=== PATIENT | female | born 1975 | race Caucasian/White ===

== ENCOUNTER 2018-07-17 17:29 | Emergency (ER) | payer SELFPAY ==
[2018-07-17] MEDS ORDERED: ONDANSETRON 4 MG TAB.RAPDIS PO ONE (17:49)
--- NOTE | 2018-07-17 17:51 | ER Document Report ---
ED Medical Screen (RME) - General Chief Complaint: Nausea Stated Complaint: NAUSEA Time Seen by Provider: 07/17/18 17:49 Mode of Arrival: Ambulatory Information source: Patient TRAVEL OUTSIDE OF THE [place] IN LAST 30 DAYS: No - HPI Patient complains to provider of: nausea Onset: Other - pt with c/o nausea for the past 3-4 wks. Denies V/D - Related Data Allergies/Adverse Reactions: No Known Allergies Allergy (Verified 07/17/18 17:31) Physical Exam - Vital signs Vitals: Temp Pulse Resp BP Pulse Ox 98.9 F 76 20 110/60 97 07/17/18 17:44 07/17/18 17:44 07/17/18 17:44 07/17/18 17:44 07/17/18 17:44 Course - Vital Signs Vital signs: Temp Pulse Resp BP Pulse Ox 98.9 F 76 20 110/60 97 07/17/18 17:44 07/17/18 17:44 07/17/18 17:44 07/17/18 17:44 07/17/18 17:44
[2018-07-17 18:12] LABS: ABSOLUTE EOSINOPHILS # (AUTO) 0.1 10^3/uL (0.0-0.6); ABSOLUTE MONOCYTES (AUTO) 0.5 10^3/uL (0.1-1.4); ABSOLUTE NEUT (AUTO) 7.2 10^3/uL (1.7-8.2); BASOPHILS % (AUTO) 0.4 % (0-2); HEMOGLOBIN 13.1 g/dL (12.0-15.5); LYMPHOCYTES % (AUTO) 20.6 % (13-45); MEAN CORPUSCULAR HEMOGLOBIN 31.1 pg (27.0-33.4); MEAN CORPUSCULAR HGB CONC 34.5 g/dL (32.0-36.0); MEAN CORPUSCULAR VOLUME 90 fl (80-97); MONOCYTES % (AUTO) 5.2 % (3-13); PLATELET COUNT 258 10^3/uL (150-450); RED BLOOD COUNT 4.22 10^6/uL (3.72-5.28); SEGMENTED NEUTROPHILS % (AUTO) 72.8 % (42-78); TOTAL CELLS COUNTED % (AUTO) 100 %; WHITE BLOOD COUNT 9.9 10^3/uL (4.0-10.5)
[2018-07-17 18:22] LABS: APPEARANCE,URINE CLEAR; BILIRUBIN,URINE NEGATIVE (NEGATIVE); COLOR,URINE COLORLESS; GLUCOSE, URINE NEGATIVE (NEGATIVE); KETONES,URINE NEGATIVE (NEGATIVE); LEUKOCYTE ESTERASE,URINE TRACE (NEGATIVE); NITRITE,URINE NEGATIVE (NEGATIVE); PROTEIN,URINE NEGATIVE (NEGATIVE); URINE SPECIFIC GRAVITY 1.004; UROBILINOGEN,URINE NEGATIVE mg/dL (<2.0)
[2018-07-17 18:37] LABS: ALANINE AMINOTRANSFERASE 13 U/L (9-52); ALKALINE PHOSPHATASE 58 U/L (38-126); ANION GAP 6 (5-19); ASPARTATE AMINO TRANSFERASE 18 U/L (14-36); BILIRUBIN,DIRECT 0.3 mg/dL (0.0-0.4); BILIRUBIN,TOTAL 0.6 mg/dL (0.2-1.3); BLOOD UREA NITROGEN 14 mg/dL (7-20); CALCIUM 9.2 mg/dL (8.4-10.2); CARBON DIOXIDE 30 mmol/L (22-30); CHLORIDE 105 mmol/L (98-107); GLUCOSE 107 mg/dL (75-110); POTASSIUM 3.7 mmol/L (3.6-5.0); SODIUM 140.9 mmol/L (137-145); TOTAL PROTEIN 7.2 g/dL (6.3-8.2)
[2018-07-17] MEDS ORDERED: FAMOTIDINE 20 MG TABLET PO ONE (19:30)
[2018-07-17] MEDS ORDERED: ONDANSETRON ODT 4 MG TAB (6 TAB/ER DISP) PO PRN (19:30)
--- NOTE | 2018-07-17 19:32 | ER Document Report ---
ED General - General Chief Complaint: Nausea Stated Complaint: NAUSEA Time Seen by Provider: 07/17/18 17:49 Mode of Arrival: Ambulatory Notes: Patient is a 42-year-old female without chronic medical problems who presents with 3-4 weeks of persistent nausea. The patient reports that she has had nausea throughout every day except 1 or 2 days over the past 1 month. She states the nausea has worsened by the smell of food. She has not trying to improve her nausea. She reports a history of similar symptoms in the past but notes that it has never lasted this long. She adamantly denies any associated abdominal pain, diarrhea, but does note that she had one episode of vomiting approximately a month ago but none since that time. She states that she has continued to be able to tolerate food and fluid intake despite this nausea. She has not seen her general physician regarding today's concerns. She denies fever or constitutional symptoms. TRAVEL OUTSIDE OF THE [place] IN LAST 30 DAYS: No - Related Data Allergies/Adverse Reactions: No Known Allergies Allergy (Verified 07/17/18 17:31) Past Medical History - General Information source: Patient - Social History Smoking Status: Never Smoker Chew tobacco use (# tins/day): No Frequency of alcohol use: Occasional Drug Abuse: None Lives with: Spouse/Significant other Family History: Reviewed & Not Pertinent Patient has suicidal ideation: No Patient has homicidal ideation: No Renal/ Medical History: Denies: Hx Peritoneal Dialysis Past Surgical History: Reports: Hx Tubal Ligation Review of Systems - Review of Systems Notes: Constitutional: Negative for fever. HENT: Negative for sore throat. Eyes: Negative for visual changes. Cardiovascular: Negative for chest pain. Respiratory: Negative for shortness of breath. Gastrointestinal: Negative for abdominal pain, vomiting or diarrhea. Positive for nausea Genitourinary: Negative for dysuria. Musculoskeletal: Negative for back pain. Skin: Negative for rash. Neurological: Negative for headaches, weakness or numbness. 10 point ROS negative except as marked above and in HPI. Physical Exam - Vital signs Vitals: Temp Pulse Resp BP Pulse Ox 98.9 F 76 20 110/60 97 07/17/18 17:44 07/17/18 17:44 07/17/18 17:44 07/17/18 17:44 07/17/18 17:44 Interpretation: Normal Notes: PHYSICAL EXAMINATION: GENERAL: Well-appearing, well-nourished and in no acute distress. HEAD: Atraumatic, normocephalic. EYES: Pupils equal round and reactive to light, extraocular movements intact, sclera anicteric, conjunctiva are normal. ENT: nares patent, oropharynx clear without exudates. Moist mucous membranes. NECK: Normal range of motion, supple without lymphadenopathy LUNGS: Breath sounds clear to auscultation bilaterally and equal. No wheezes rales or rhonchi. HEART: Regular rate and rhythm without murmurs ABDOMEN: Soft, nontender, normoactive bowel sounds. No guarding, no rebound. No masses appreciated. EXTREMITIES: Normal range of motion, no pitting or edema. No cyanosis. NEUROLOGICAL: No focal neurological deficits. Moves all extremities spontaneously and on command. PSYCH: Normal mood, normal affect. SKIN: Warm, Dry, normal turgor, no rashes or lesions noted. Course - Re-evaluation Re-evalutation: 07/17/18 19:31 Patient presents with 3-4 weeks of isolated nausea without any additional complaints. Patient has no focal abdominal tenderness on examination. Lipase is normal. No LFT changes. Based on history and exam, I do not suspect ACS, pulmonary embolus, SBO, mesenteric ischemia, acute pancreatitis, biliary pathology, or an abdominal aortic dissection. Exact etiology of the patient's symptoms is uncertain although could be related to an upper intestinal irritation. I have started the patient on famotidine and advised outpatient dietary modification. At this time will discharge with return precautions and follow-up recommendations. Verbal discharge instructions given a the bedside and opportunity for questions given. Medication warnings reviewed. Patient is in agreement with this plan and has verbalized understanding of return precautions and the need for primary care follow-up in the next 24-72 hours. - Vital Signs Vital signs: Temp Pulse Resp BP Pulse Ox 98.3 F 78 17 112/53 L 100 07/17/18 19:43 07/17/18 19:43 07/17/18 19:43 07/17/18 19:43 07/17/18 19:43 - Laboratory Result Diagrams: 07/17/18 17:50 07/17/18 17:50 Laboratory results interpreted by me: 07/17/18 17:50 Urine Blood MODERATE H Ur Leukocyte Esterase TRACE H Discharge - Discharge Clinical Impression: Nausea Gastritis Qualifiers: Gastritis type: unspecified gastritis Chronicity: acute Gastritis bleeding: presence of bleeding unspecified Qualified Code(s): K29.00 - Acute gastritis without bleeding Condition: Good Disposition: HOME, SELF-CARE Additional Instructions: Your symptoms appear to be most consistent with stomach or upper intestinal irritation. Please begin taking famotidine 40 mg in the morning and 40 mg at night. This medicine can be purchased directly [id number]. Please return to emergency department immediately if you have development of abdominal pain, shortness of breath, vomiting, become unable to exert yourself due to pain or difficulty breathing, you pass out, or have any pain that radiates into your arms, jaw, or back. Please also return if you have any additional symptoms that are concerning to you. Take Zofran as needed for nausea As we have discussed, the most important thing is lifestyle changes. You need to avoid smoking, sodas, tea, coffee, alcohol, spicy foods, and acidic foods such as citrus fruits, tomato based products, berries, and most fruit juices. Prescriptions: Famotidine 40 mg PO BID #60 tablet Ondansetron [Zofran Odt 4 mg Tablet] 1 - 2 tab PO Q4H PRN #15 tab.rapdis PRN Reason: For Nausea/Vomiting
[2018-07-17 19:43] VITALS: BP 112/53
== END 2018-07-17 19:43 | disposition home or self-care (01) ==
LOC: ER 17:29
DX: K29.00 Acute gastritis without bleeding (principal); R11.0 Nausea
CPT/HCPCS: 99283; 36415; 85025; 81025; 80053; 81001; S0119

== ENCOUNTER 2018-12-27 14:35 | Emergency (ER) | payer SELFPAY ==
[2018-12-27] MEDS ORDERED: ONDANSETRON HCL INJ/PF 4 MG/2 ML SDV IV ONE (15:18)
--- NOTE | 2018-12-27 15:20 | ER Document Report ---
ED Medical Screen (RME) - General Chief Complaint: Nausea Stated Complaint: POSSIBLE ABSCESS Time Seen by Provider: 12/27/18 15:16 TRAVEL OUTSIDE OF THE [place] IN LAST 30 DAYS: No - HPI Notes: 12/27/18 15:19 Patient is a 43-year-old female no significant past medical history who presents complaining of nausea for 2 months without vomiting. Patient is also had left mid abdominal pain that is been present for 2 days. Patient states that she has had pain throughout her abdomen on different occasions, but this pain currently does not radiate. She is urinating normally and having normal bowel movements. No other concerns or complaints. Denies HERNANDEZ, fever, neck pain, URI, CP, SOB, diarrhea, dysuria, vaginal discharge/odor/bleeding, or rash. I have treated and performed a rapid initial assessment of this patient. A comprehensive ED assessment and evaluation of the patient, analysis of test results and completion of medical decision making process will be conducted by additional ED providers. PHYSICAL EXAMINATION: GENERAL: Well-appearing, well-nourished and in no acute distress. A&Ox4. Answers questions appropriately. LUNGS: Breath sounds clear to auscultation bilaterally and equal. No wheezes rales or rhonchi. HEART: Regular rate and rhythm without murmurs, rubs, gallops. ABDOMEN: Soft, nondistended abdomen. No guarding, no rebound. Normal bowel sounds present. No CVA tenderness bilaterally. Grossly nontender (cannot elicit thorough abd exam w/o table, however). Extremities: No cyanosis, clubbing, or edema b/l. NEUROLOGICAL: Normal speech, normal gait. PSYCH: Normal mood, normal affect. - Related Data Allergies/Adverse Reactions: No Known Allergies Allergy (Verified 07/17/18 17:31) Past Medical History - Social History Chew tobacco use (# tins/day): No Frequency of alcohol use: Occasional Drug Abuse: None Renal/ Medical History: Denies: Hx Peritoneal Dialysis Past Surgical History: Reports: Hx Tubal Ligation Physical Exam - Vital signs Vitals: Temp Pulse Resp BP Pulse Ox 98.8 F 79 20 117/71 96 12/27/18 14:40 12/27/18 14:40 12/27/18 14:40 12/27/18 14:40 12/27/18 14:40 Course - Vital Signs Vital signs: Temp Pulse Resp BP Pulse Ox 98.8 F 79 20 117/71 96 12/27/18 14:40 12/27/18 14:40 12/27/18 14:40 12/27/18 14:40 12/27/18 14:40
[2018-12-27 16:05] LABS: ABSOLUTE BASOPHILS # (AUTO) 0.1 10^3/uL (0.0-0.2); ABSOLUTE EOSINOPHILS # (AUTO) 0.2 10^3/uL (0.0-0.6); ABSOLUTE LYMPHOCYTES (AUTO) 2.2 10^3/uL (0.5-4.7); ABSOLUTE MONOCYTES (AUTO) 0.4 10^3/uL (0.1-1.4); ABSOLUTE NEUT (AUTO) 5.3 10^3/uL (1.7-8.2); BASOPHILS % (AUTO) 0.8 % (0-2); HEMATOCRIT 38.7 % (36.0-47.0); LYMPHOCYTES % (AUTO) 26.8 % (13-45); MEAN CORPUSCULAR HEMOGLOBIN 30.3 pg (27.0-33.4); MEAN CORPUSCULAR HGB CONC 33.7 g/dL (32.0-36.0); MEAN CORPUSCULAR VOLUME 90 fl (80-97); MONOCYTES % (AUTO) 5.2 % (3-13); PLATELET COUNT 260 10^3/uL (150-450); RED BLOOD COUNT 4.31 10^6/uL (3.72-5.28); RED CELL DISTRIBUTION WIDTH 12.7 % (11.5-14.0); SEGMENTED NEUTROPHILS % (AUTO) 65.2 % (42-78); TOTAL CELLS COUNTED % (AUTO) 100 %; WHITE BLOOD COUNT 8.1 10^3/uL (4.0-10.5)
[2018-12-27 16:06] LABS: APPEARANCE,URINE CLEAR; BILIRUBIN,URINE NEGATIVE (NEGATIVE); COLOR,URINE YELLOW; GLUCOSE, URINE NEGATIVE (NEGATIVE); KETONES,URINE NEGATIVE (NEGATIVE); LEUKOCYTE ESTERASE,URINE NEGATIVE (NEGATIVE); NITRITE,URINE NEGATIVE (NEGATIVE); PROTEIN,URINE NEGATIVE (NEGATIVE); URINE SPECIFIC GRAVITY 1.019; UROBILINOGEN,URINE NEGATIVE mg/dL (<2.0)
[2018-12-27 16:38] LABS: ALANINE AMINOTRANSFERASE 15 U/L (9-52); ALKALINE PHOSPHATASE 60 U/L (38-126); ANION GAP 10 (5-19); ASPARTATE AMINO TRANSFERASE 18 U/L (14-36); BILIRUBIN,DIRECT 0.2 mg/dL (0.0-0.4); BILIRUBIN,TOTAL 0.3 mg/dL (0.2-1.3); BLOOD UREA NITROGEN 12 mg/dL (7-20); CARBON DIOXIDE 28 mmol/L (22-30); CHLORIDE 104 mmol/L (98-107); GLUCOSE 108 mg/dL (75-110); LIPASE 80.7 U/L (23-300); SODIUM 141.7 mmol/L (137-145); TOTAL PROTEIN 7.4 g/dL (6.3-8.2)
--- NOTE | 2018-12-27 16:41 | ER Document Report ---
ED GI/ - General Chief Complaint: Nausea Stated Complaint: POSSIBLE ABSCESS Time Seen by Provider: 12/27/18 15:16 Mode of Arrival: Ambulatory Information source: Patient TRAVEL OUTSIDE OF THE [place] IN LAST 30 DAYS: No - HPI Patient complains to provider of: Other - NAUSEA Notes: 12/27/18 16:39 Patient here with complaints of feeling nauseous for the last 2 months. She also states she had some intermittent bloating in her ab then. She denies any abdominal pain now. No fevers. She denies any dysuria or hematuria. No vagi nal bleeding or vaginal discharge. She states that her periods have been irregular as well, she was concerned that she could potentially be . She denies any chest pain or shortness of breath. No vomiting. No diarrhea. No rash. She denies any abdominal pain at this moment. She does not currently have a primary care doctor. She does have a previous history of ovarian cyst and was concerned that she potentially could have an ovarian cyst as well. No other specific complaints at this time. - Related Data Allergies/Adverse Reactions: No Known Allergies Allergy (Verified 07/17/18 17:31) Past Medical History - Social History Smoking Status: Unknown if Ever Smoked Chew tobacco use (# tins/day): No Frequency of alcohol use: Occasional Drug Abuse: None Family History: Reviewed & Not Pertinent Patient has suicidal ideation: No Patient has homicidal ideation: No Renal/ Medical History: Denies: Hx Peritoneal Dialysis Past Surgical History: Reports: Hx Tubal Ligation Review of Systems - Review of Systems -: Yes All other systems reviewed and negative Physical Exam - Vital signs Vitals: Temp Pulse Resp BP Pulse Ox 98.8 F 79 20 117/71 96 12/27/18 14:40 12/27/18 14:40 12/27/18 14:40 12/27/18 14:40 12/27/18 14:40 - Notes Notes: GENERAL: alert, cooperative, nontoxic, no distress. HEAD: normocephalic, atraumatic EYES: conjunctiva pink without discharge, no external redness or swelling. EARS: no external swelling, no external redness NOSE: atraumatic, no external swelling MOUTH/THROAT: mucous membranes moist and pink, posterior pharynx without erythema, swelling, exudate. No trismus or drooling. NECK: soft, supple, full range of motion, no meningismus. CHEST: no distress, lungs clear and equal throughout. No wheezing, rales, rhonchi. CARDIAC: regular rate and rhythm, no murmur, normal capillary refill, normal pulses. No peripheral edema noted. ABDOMEN: Soft, nontender. No rebound tenderness or guarding. No mass. BACK: full range of motion, no CVA tenderness. EXTREMITIES: full range of motion of all extremities. No redness, no swelling. NEURO: alert and oriented x 3, no focal deficits, full range of motion of all extremities. PYSCH: appropriate mood, affect. Patient is cooperative. SKIN: pink, warm, dry, no rash. Course - Re-evaluation Re-evalutation: 12/27/18 17:28 Patient is nontoxic-appearing with stable vitals. Patient here with complaints of feeling nauseous for the last few months and some having some occasional abdominal bloating. No abdominal pain currently. She has no focal tenderness on exam at this time. Lab work is all unremarkable for any significant a bnormalities. Urine is negative. No signs of infection. This point I cannot explain why the patient feels intermittently nauseous. She had no vomiting. Patient will be discharged home with nausea medication. Instructions to follow-up with her family doctor at the next available appointment. She is concerned that she may have had an ovarian cyst come back. She will be given [facility] referrals as well. This point do not believe she requires any emergent imaging as she has no tenderness on exam and lab work is all unremarkable. Is possible that she will require some imaging as an outpatient to further evaluate her symptoms. She instructed to follow-up sooner if she develops any worsening pain, high fever, persistent vomiting, or if she has any further concerns. The patient's emergency department workup and current diagnosis were explained to the patient and or family. Follow-up instructions were provided. Medications if prescribed were discussed. Instructions for when to return to the emergency department including specific worrisome symptoms were discussed with the patient and/or family. - Vital Signs Vital signs: Temp Pulse Resp BP Pulse Ox 98.8 F 79 20 117/71 96 12/27/18 14:40 12/27/18 14:40 12/27/18 14:40 12/27/18 14:40 12/27/18 14:40 - Laboratory Result Diagrams: 12/27/18 15:41 12/27/18 15:41 Laboratory results interpreted by me: 12/27/18 15:41 Urine Blood MODERATE H Discharge - Discharge Clinical Impression: Nausea Condition: Stable Disposition: HOME, SELF-CARE Instructions: Nausea or Vomiting, Nonspecific ([facility]) Additional Instructions: Follow-up with primary care and [facility] at the next available appointment. Follow-up sooner for any worsening symptoms, high fever, severe pain, persistent vomiting, or for any further concerns. Prescriptions: Ondansetron HCl [Zofran 4 mg Tablet] 1 tab PO Q6H PRN #10 tablet PRN Reason: Forms: Smoking Cessation Education Referrals: [facility] [Provider Group] - Follow up as needed JACLYN HIGUERA MD [ACTIVE STAFF] - Follow up as needed
[2018-12-27 17:39] VITALS: BP 113/66
== END 2018-12-27 17:39 | disposition home or self-care (01) ==
LOC: ER 14:35
DX: R11.0 Nausea (principal); N92.6 Irregular menstruation, unspecified; Z98.51 Tubal ligation status; Z87.42 Personal history of other diseases of the female genital tract
CPT/HCPCS: 99283; 96374; 36415; 83690; 85025; 81025; 80053; 81001; J2405